=== PATIENT | male | born 1955 | race African-American/Black ===

== ENCOUNTER 2016-07-29 06:09 | Outpatient (CLI) | payer BC ==
[~2016-07-29] VITALS: Ht 175.3 cm; Wt 104.7 kg
--- NOTE | ~2016-07-29 | CATH ---
Cardiac Diagnostic + PCI Report Demographics Patient Name SAEID Abraham Gender Male Date of 1955 Age 60 year(s) Patient Number [id number] Date of Study 07/29/2016 Visit Number [id number] Room Number G6399 [place] [id number] Ht 175.26 cm Wt 102.5 kg Referring Richard Raphael Primary Physician Physician Performing Efstratiou Secondary Physician Physician Maynor Looney MD Diagnostic Ef[facility] Assisting Physician Physician Maynor Looney MD Interventional Efstratiou Physician Director Specialty Physician Maynor Looney MD Findings and Conclusions Diagnostic Findings and Conclusion Patient previous stent in RCA and LAD- 70%discrete stenosis in mid LAD Diagnostic Recommendations PCI to LAD Interventional Findings and Conclusion Successful PCI of the mid LAD coronary artery using a Drug Eluting stent. Interventional Recommendations Continue DAPT and risk factor control Procedure Description The patient was brought to the diagnostic cardiac catheterization-EP laboratory in the fasting, non-sedated state. Informed consent was obtained in the written and verbal form after the risks and benefits were explained. The patient had no further questions and agreed to proceed. The planned puncture-incision site(s) were shaved and prepped with ChloraPrep and draped in the usual sterile manner. Conscious sedation, supplemental oxygen, and pain control medications were delivered by a registered nurse under physician guidance. Surface ECG rhythm, blood pressure measurement, and pulse oximetry were monitored throughout the procedure. Arterial access. The access site was infiltrated with lidocaine. The vessel was entered with the Seldinger technique. A sheath was advanced into the vessel and used for catheter placement. Selective left coronary angiography. A catheter was advanced into the left coronary vessel ostium under Fluoroscopic guidance. Contrast was injected by hand. Images were obtained in multiple projections. Selective right coronary angiography. A catheter was advanced into the right coronary vessel ostium under fluoroscopic guidance. Contrast was injected by hand. Images were obtained in multiple projections. Left heart catheterization. A catheter was advanced across the aortic valve to the left ventricle under fluoroscopic guidance. Resting hemodynamics were obtained. Angioplasty and Stent Placement: A guiding catheter was used to intubate the vessel. A 0.14 wire was then used to cross the lesion. A balloon catheter was placed across the lesion and inflated. The balloon catheter was then removed. A Drug Eluting Stent was placed and inflated. Post placement angiograms were performed. Arterial artery hemostasis was achieved. The patient was transferred to a regular nursing floor via cart accompanied by a nurse. The patient left the laboratory in stable condition. Diagnostic Cath Status: Elective Interventional Cath Status: Urgent Procedure Procedure Type Diagnostic procedure:Angiography:, Coronary Angios /[facility] PCI procedure:Drug Eluting Coronary Stent:, LAD, PTCA:, LAD Indications: Abnormal stress perfusion study and Angina. The procedure was explained in detail to the patient. Risks, complications and alternative treatments were reviewed. Written consent was obtained. Medications Reviewed with Patient prior to Procedure. Angiographic Findings Dominance: Right Cardiac Arteries and Lesion Findings LMCA: Normal (0% Stenosis). LAD: Abnormal.The 1st Diag is a small caliber vessel. The 1st Diag appears abnormal.There is a previous stent on Dist LAD Mid subsection showing wide patency. Lesion on Mid LAD: 70% stenosis 16 mm length reduced to 9%. Pre procedure KAREEN III flow was noted. Post Procedure KAREEN III flow was present. The guidewire cross was successful.The lesion was diagnosed as a low risk lesion.Culprit lesion. Devices used - Whisper Wire .014 x 190. Number of passes: 1. - Angiosculpt Balloon 3.0 x 10. Diameter: 3 mm. Length: 10 mm. 1 inflation(s) to a max pressure of: 18 lian. - Promus Premier 3.0 x 16 Stent. 1 inflation(s) to a max pressure of: 14 lian. Lesion on Prox LAD: 30% stenosis . Lesion on 1st Dia% stenosis . LCx: Abnormal.The 1st ob Sandra appears abnormal. Lesion on Mid CX: 20% stenosis . Lesion on 1st Ob Sandra% stenosis . RCA: Abnormal.The R Pl is a small caliber vessel. The R Pl appears abnormal. The R PDA appears abnormal.There is a previous stent on Mid RCA showing wide patency. There is a previous stent on R PDA showing wide patency. Lesion on Prox RCA: 30% stenosis . Lesion on Mid RCA: 30% stenosis . Lesion on 1st RPL: 70% stenosis . Lesion on R PDA: 20% stenosis . Coronary Tree Procedure Data Procedure Date Date: 07/29/2016Start: 09:03 AMEnd: 09:49 AM Entry Locations - Retrograde Percutaneous access was performed through the Right Radial artery (Primary location). A 6 Fr sheath was inserted. Unsuccessful closure attempt was performed using: an R band. Hemostasis was successfully obtained using Mechanical Compression. Closure Comments: CLAUDE PLACEMENT 16 ML AIR. Procedure Medications Order and Administration + + +--------+ + !Time !Medication !Dosage !Route ! + + +--------+ + !07/29/2016 !PAE Radial Cocktail: Heparin 5000 units,! !I.A. ! !09:04 AM !Nitroglycerin 200mcg, Verapamil 3 mg ! ! ! ! !(ACC_3) ! ! ! + + +--------+ + !07/29/2016 !Heparin (ACC_3) !3000 !I.V. bolus! !09:14 AM ! !units ! ! + + +--------+ + !07/29/2016 !Heparin (ACC_3) !3000 !I.V. bolus! !09:21 AM ! !units ! ! + + +--------+ + Devices Used - A6 Fr. BS JR 4 Diag. Catheterwas used for:Right coronary angiography. - A6 Fr. BS JL 3.5 Diag. Catheterwas used for:Left coronary angiography. - A6 Fr. XBLAD 3.5 Guide Catheterwas used for:LAD Intervention. Contrast Material - Isovue 74711 ml Fluoroscopy Time: Diagnostic: 6:48 minutes. Total: 6:48 minutes. Fluoroscopy Dose: Diagnostic: 779 mGy. Total: 779 mGy. Estimated Blood Loss: 10 ml. Additional [facility] PCI Information PCI Indication:Other. Medical History Performed Procedures and Imaging Results - Stress testing with SPECT MPIwas performed on 07/06/2016. Results were: Positive. Risk/Extent of ischemia was: Intermediate risk. Allergies - No known allergies. Risk Factors The patient risk factors include:prior PCI on 03/02/2014;cerebrovascular disease, hypertension, family history of premature CAD, insulin-treated diabetes mellitus, last creatinine: 2.9 mg/dl, creatinine clearance: 40.25 ml/min, dyslipidemia and former tobacco use. Admission Data Admission Date: 07/29/2016 Admission Time: 06:09 AM Admit Source: Transfer acute care facility Insurance Payors: Private health insurance. Admission Medications + +------+-------+ + + + + !Medication!Dosage!Times !Last !Last !Administered !Comments ! ! ! !Per Day!Delivery !Delivery ! ! ! ! ! ! !Date !Time ! ! ! + +------+-------+ + + + + !Aspirin ! ! ! ! !Yes ! ! !(any) ! ! ! ! ! ! ! + +------+-------+ + + + + !Statin ! ! ! ! !Yes ! ! !(any) ! ! ! ! ! ! ! + +------+-------+ + + + + !Ticagrelor! ! ! ! !Yes ! ! + +------+-------+ + + + + Clinical Evaluation Leading to Procedure - The patient's CAD presentation was assessed as: Stable angina. - The patient's anginal syndrome during the past two weeks was assessed as: Class III according to the [place] Cardi[employer] Classification System (CCS). Anti-anginal medications were prescribed during the past two weeks. The medications are: Beta Blockers and Ca channel Blockers. - The patient has been in a state of heart failure within the past two weeks. - The patient's heart failure status was assessed as NYHA Class II. Snapshots Hemodynamics Condition: Rest O2 Consumption: Estimated: 250.83Heart Rate: 62 bpm Pressures (mmHg) +-----+ + !Site !Pressure ! +-----+ + !LV !122/10 ,25 ! +-----+ + !LV !126/9 ,28 ! +-----+ + !AO !132/60 (92) ! +-----+ + !LV !127/8 ,27 ! +-----+ + !AO !118/62 (85) ! +-----+ + !AO !135/77 (101) ! +-----+ + Valve Gradients and Areas + +---------+---------+---------+ +---------+ + !Valve !Peak !Mean !Area !Index !Flow !Source ! + +---------+---------+---------+ +---------+ + !Aortic !0 !0 ! ! ! ! ! + +---------+---------+---------+ +---------+ + !Aortic !0 !0 ! ! ! ! ! + +---------+---------+---------+ +---------+ + Shunts Oxygen Values O2 Capacity 138.72 O2 Consumption 250.83 Signatures dtt: Fallon Mckeon dtd: 07/29/16 0903 Physician Self Edit
[~2016-07-29 06:09] MED LIST: AMARYL4 MG PO; AMOXICILLIN500 M1 PO; ASPIRIN EC81 MG PO; BASAGLAR K100 UNIT/1 SUB-Q; BRILINTA90 MG PO; CARBAMAZEPINE200 MG PO; COZAAR100 MG PO; FISH OIL 1,0001 EAC1 PO; LANTUS (IN100 UNIT/M SUB-Q; LASIX40 M1 PO; LIPITOR80 MG PO; LOPRESSOR100 MG PO; NITROSTAT 0.40.4 MG SL; NORCO 5-325 MG1 TAB PO; NORVASC5 MG PO; NOVOLOG FL100 UNIT/1 SUB-Q; RANEXA1000 MG PO; SINUS RELIEF14.7 ML NOSE; VITAMIN D250000 UNIT PO; ZYLOPRIM100 MG PO
[2016-07-29 06:53] LABS: BASOPHIL % 0.5 %; EOSINOPHIL # 0.2 K/uL (0.0-0.5); EOSINOPHIL % 2.4 %; HEMATOCRIT 31.6 % (37.0-53.0); HEMOGLOBIN 10.2 g/dL (12.0-17.0); IMMATURE GRANULOCYTE % 0.5 %; LYMPHOCYTE % 32.2 %; MCH 31.4 pg (27.0-34.0); MCHC 32.3 gm/dL (32.0-36.5); MCV 97.2 fl (83.0-98.0); MONOCYTE # 0.5 K/uL (0.0-1.0); MONOCYTE % 7.7 %; MPV 11.3 fl (9.4-12.4); NEUTROPHIL # (ANC) 3.5 K/uL (1.4-9.0); NEUTROPHIL % 56.7 %; NRBC % 0 /100WBC (0-0.00); PLATELET COUNT 234 K/uL (150-450); RBC 3.25 M/uL (4.00-6.00); RDW-CV 13.7 % (11.9-14.6); WBC 6.2 K/uL (4.0-11.0)
[2016-07-29 07:09] LABS: INR - (THERAPEUTIC) 0.92 (0.92-1.07); PROTIME 9.7 SECONDS (9.8-11.4); PTT 27 SECONDS (25-32)
[2016-07-29 07:15] LABS: ALBUMIN 2.4 gm/dL (3.5-5.0); ALK PHOS 95 IU/L (33-138); ALT 26 IU/L (12-78); CALCIUM 8.1 mg/dL (8.5-10.5); CHLORIDE 111 mMol/L (96-110); CO2 22 mMol/L (22-32); CREATININE 2.9 mg/dL (0.6-1.3); SODIUM 143 mMol/L (135-145); TOTAL BILIRUBIN 0.2 mg/dL (0.0-1.5); TOTAL PROTEIN 6.6 g/dL (6.0-8.4)
[2016-07-29 07:23] LABS: ANION GAP 14.5 (10.0-19.0)
[2016-07-29 07:24] LABS: AST 25 IU/L (10-40); BLOOD UREA NITROGEN 54 mg/dL (6-24); POTASSIUM 4.5 mMol/L (3.7-5.1)
[2016-07-29 07:25] LABS: ESTIMATED GFR (MDRD EQUATION) 22
[2016-07-29 11:13] LABS: CPK 258 IU/L (35-332)
[2016-07-29 16:47] LABS: CPK 228 IU/L (35-332)
--- NOTE | 2016-07-29 16:49 | NUR ---
Significant Event: TO PCU FROM SAMPLE TAKER OPERATOR AT 1110. STENT TO MID LAD. RIGHT RADIAL APPROACH. R-BAND REMOVED @ 1640, BAND-AID AND COBAN APPLIED. NS @ 100 ML/HR FOR 2 LITERS INFUSING TO LEFT HAND IV. VOIDING WELL. UP WITH MINIMAL ASSIST. DENIES PAIN. Follow up: PLAN TO DC HOME TOMORROW.
[2016-07-30 04:50] LABS: ALBUMIN 2.2 gm/dL (3.5-5.0); ANION GAP 13.5 (10.0-19.0); CALCIUM 7.6 mg/dL (8.5-10.5); CREATININE 2.7 mg/dL (0.6-1.3); POTASSIUM 4.5 mMol/L (3.7-5.1); TOTAL BILIRUBIN 0.2 mg/dL (0.0-1.5); TOTAL PROTEIN 5.9 g/dL (6.0-8.4)
--- NOTE | 2016-07-30 05:03 | NUR ---
Significant Event: PATIENT A/O X 3, AMBULATES STAND BY ASSIST. HR 60'S, SBP 130-160'S, 02 SATS MID 90'S ON RA, AFEBRILE. RIGHT WRIST HAS BAND-AID/COBAND WITH NO COMPLICATIONS. ONLY PAIN WAS A HEADACHE WICH TYLENOL RELIEVED. HAS RESTED WELL THIS EVENING WITH NO COMPLICATIONS. TROPONIN ONLY CARDIAC ENZYME ELEVATED, LAST ONE WAS AT 0420 WITH VALUE OF .115 Follow up:
[2016-07-30] MEDS ORDERED: LOVAZA1 GM PO (09:18)
--- NOTE | 2016-07-30 11:08 | NUR ---
A&O. SBA. NO C/O PAIN . R WRIST CDI 2+ PULSES CSM WNL. LS CLEAR. BS ACTIVE. VOID PER BR. RA. AFEBRILE. ABP 150'S-170'S. HR NS 60'S. SHOWER IND. DISCHARGE INSTRUCTIONS REVIEWED QUESTIONS ANSWERED. PT TAKEN TO LOBBY WITH VIA WC TO PRIVATE VEHICLE HOME.
== END 2016-07-30 10:10 | disposition disaster alternative care site (69) ==
LOC: GPOC 06:09 → GPCU 06:09 → GPOC 07-30 10:10
PROVIDERS: Internal Medicine Cardiovascular Disease
DX: I25.10 Atherosclerotic heart disease of native coronary artery without angina pectoris (principal); I10 Essential (primary) hypertension; Z95.5 Presence of coronary angioplasty implant and graft; E11.22 Type 2 diabetes mellitus with diabetic chronic kidney disease; I12.9 Hypertensive chronic kidney disease with stage 1 through stage 4 chronic kidney disease, or unspecified chronic kidney disease; N18.3 Chronic kidney disease, stage 3 (moderate); Z79.4 Long term (current) use of insulin; D63.1 Anemia in chronic kidney disease; E78.1 Pure hyperglyceridemia
CPT/HCPCS: C1725; C1769; C1874; C1887; C1894; C9600; J1644; J2001; J2250; J3010; J7030